=== PATIENT | male | born 1955 | race Caucasian/White ===

== ENCOUNTER → 2020-07-05 07:33 | Day surgery (SDC) | payer MEDICARE ==
[~2020-07-05] VITALS: Ht 167.6 cm; Wt 86.2 kg
[~2020-07-05 07:33] MED LIST: LISINOPRIL20 MG; TRAZODONE HCL100 MG PO; ZOCOR20 MG PO
[2020-07-05 08:09] LABS: BASOPHILS 1.1 % (0-2); EOSINOPHILS 3.2 % (0-7); HEMATOCRIT 44.7 % (42.0-54.0); HEMOGLOBIN 15.1 g/dL (13.5-17.5); IMMATURE GRANULOCYTES 0.2 % (0-5); LYMPHOCYTE ABS# 0.92 10x3/uL (1.32-3.57); LYMPHOCYTES 16.1 % (15-50); MCH 29.2 pg (26.0-34.0); MCHC 33.8 g/dL (31.0-37.0); MCV 86.3 fL (80.0-100.0); MEAN PLATELET VOLUME 8.7 fL (7.4-10.4); MONOCYTES 11.4 % (2-11); NEUTROPHIL ABS# 3.89 10x3/uL (1.78-5.38); PLATELET COUNT 251 10x3/uL (130-400); RBC 5.18 10x6/uL (4.20-6.10); RDW 13.2 % (11.5-14.5); WBC 5.7 10x3/uL (4.8-10.8)
[2020-07-05 08:18] LABS: ANION GAP 12.1 mmol/L (8-16); CALCIUM 9.2 mg/dL (8.5-10.1); CARBON DIOXIDE 27.3 mmol/L (21.0-32.0); CREATININE - SERUM 1.3 mg/dL (0.6-1.3); POTASSIUM - SERUM 4.4 mmol/L (3.5-5.1)
[2020-07-05 08:48] VITALS: BP 129/71; BMI 30.7
[2020-07-05 08:54] VITALS: BP 129/71; Ht 167.6 cm; Wt 86.2 kg
== END | disposition home or self-care (01) ==
LOC: D.OPS 07:33
PROVIDERS: Anesthesiology; ATTEND Orthopaedic Surgery
DX: S83.241A Other tear of medial meniscus, current injury, right knee, initial encounter (principal); Z53.9 Procedure and treatment not carried out, unspecified reason

== ENCOUNTER 2020-07-12 06:05 | Day surgery (SDC) | payer MEDICARE ==
[~2020-07-12] VITALS: Ht 167.6 cm; Wt 86.2 kg
--- NOTE | ~2020-07-12 | OP ---
PATIENT NAME: MARY BETH HAMLIN MEDICAL RECORD: [id number] :55 LOCATION:[facility] ADMISSION DATE: SURGEON: MANJIT HOOVER MD DATE OF OPERATION: 07/12/2020 PREOPERATIVE DIAGNOSES: 1. Right knee pain. 2. Medial meniscus tear. 3. Chondromalacia. POSTOPERATIVE DIAGNOSES: 1. Right knee pain. 2. Medial meniscus tear. 3. Chondromalacia. PROCEDURE PERFORMED: Right knee scope with partial medial meniscectomy, chondroplasty and limited synovectomy. INDICATIONS FOR THE PROCEDURE: Mr. Hamlin is a 65-year-old male with history of right knee pain and mechanical symptoms. MRI shows evidence of medial meniscus tear. He has elected to proceed with surgery for right knee arthroscopy. Risks, benefits and alternatives of surgery were discussed with the patient and consent was obtained. DESCRIPTION OF THE PROCEDURE: The patient was met in the holding area where his identity and confirmation of procedure was performed. The right lower extremity was marked. He was taken to the operating room where he was placed supine on the operating table and anesthesia was administered. Tourniquet was applied to the right leg. Right leg was positioned in the leg swenson. The right lower extremity was prepped and draped in a sterile fashion. The patient received preoperative antibiotics and timeout was performed before initiating the case. On initiation of the case, leg was exsanguinated and the tourniquet was raised. Total tourniquet time was 39 minutes. We began with placement of our superior medial portal, inserted the cannula and filled the knee with fluid. We then placed our anterolateral portal and inserted the camera, placed our anterior medial portal under direct visualization. Diagnostic knee arthroscopy was performed. There was extensive synovitis throughout the knee. Grade III chondromalacia at the undersurface of the patella, grade I of the trochlea. There was a medial plica present. Medial and lateral gutters were clear. Medial compartment showed a tear in the posterior horn and body of the medial meniscus. Grade II chondromalacia of the medial femoral condyle and grade I of the medial tibial plateau. The ACL was intact. Lateral compartment was okay. There was some grade I chondromalacia of the lateral tibial plateau. The remainder was in good condition. Using a biter and shaver, we performed a partial medial meniscectomy. Chondroplasty was also performed at the anterior edge of the tibial plateau and at the medial femoral condyle. A limited synovectomy was performed at the tissues of the infrapatellar fat pad and the medial plica. Chondroplasty was also performed at the undersurface of the patella. Before and after images were obtained. This completed our procedure. The instruments were removed and fluid was drained from the knee. The portal sites were injected with 0.25% Marcaine with epinephrine. These were then closed with nylon suture. A sterile dressing was placed. The patient was turned back over to anesthesia where he was awakened, extubated, and taken to the recovery room in stable condition. OPERATIVE REPORT [id number] MARY BETH HAMLIN POSTOPERATIVE PLAN: The patient is going to return home with his family today. He may be weightbearing as tolerated on the right lower extremity and use assistive device as needed. Start physical therapy in 2-3 days. We will see him back in clinic in 2 weeks. COMPLICATIONS: None. ESTIMATED BLOOD LOSS: 5 mL. ANESTHESIA: General. TRANSINT:[id number] Voice Confirmation ID: [id number] DOCUMENT ID: [id number] MANJIT HOOVER MD CC: [id number] DICTATION DATE: 07/12/20 1032 REHABILITATION AIDE/SCHEDULER: 07/12/20 1153 PRE [facility] [address] [place] [address]
[2020-07-12 07:18] VITALS: BP 121/61; Ht 167.6 cm; Wt 86.2 kg
--- NOTE | 2020-07-12 10:31 | NUR ---
PT REMAINS ASLEEP - NOT AROUSABLE WITH MODERATE STIMULATION
--- NOTE | 2020-07-12 10:32 | NUR ---
PT AWAKENING - OPA REMOVED
--- NOTE | 2020-07-12 16:20 | NUR ---
1200 IV DC'D. CATHETER TIP INTACT. NO BLEEDING AT SITE. BANDAID APPLIED. 1214 PT IS DRESSED AND READY FOR DISCHARGE HOME. PT VOICES UNDERSTANDING OF DISCHARGE INSTRUCTIONS.
== END 2020-07-12 12:14 | disposition home or self-care (01) ==
LOC: D.OPS 06:05
PROVIDERS: ATTEND Orthopaedic Surgery
DX: M25.561 Pain in right knee (principal); S83.241A Other tear of medial meniscus, current injury, right knee, initial encounter; X58.XXXA Exposure to other specified factors, initial encounter; M94.261 Chondromalacia, right knee; I10 Essential (primary) hypertension; E78.5 Hyperlipidemia, unspecified

== ENCOUNTER 2020-07-17 06:28 | Day surgery (SDC) | payer MEDICARE ==
[~2020-07-17] VITALS: Ht 167.6 cm; Wt 86.4 kg
[2020-07-17 07:07] LABS: ANION GAP 8.8 mmol/L (8-16); CALCIUM 9.1 mg/dL (8.5-10.1); CARBON DIOXIDE 29.3 mmol/L (21.0-32.0); CREATININE - SERUM 1.1 mg/dL (0.6-1.3); POTASSIUM - SERUM 4.1 mmol/L (3.5-5.1)
[2020-07-17 07:16] LABS: BASOPHILS 0.4 % (0-2); EOSINOPHILS 3.2 % (0-7); HEMATOCRIT 44.3 % (42.0-54.0); IMMATURE GRANULOCYTES 0.3 % (0-5); LYMPHOCYTE ABS# 0.74 10x3/uL (1.32-3.57); LYMPHOCYTES 10.4 % (15-50); MCH 29.5 pg (26.0-34.0); MCHC 33.9 g/dL (31.0-37.0); MEAN PLATELET VOLUME 9.2 fL (7.4-10.4); MONOCYTES 10.8 % (2-11); NEUTROPHIL ABS# 5.31 10x3/uL (1.78-5.38); NEUTROPHILS 74.9 % (40-80); PLATELET COUNT 293 10x3/uL (130-400); RBC 5.09 10x6/uL (4.20-6.10); RDW 13.1 % (11.5-14.5); WBC 7.1 10x3/uL (4.8-10.8)
[2020-07-17 07:48] VITALS: BP 122/60; Ht 167.6 cm; Wt 86.4 kg
--- NOTE | 2020-07-17 13:37 | NUR ---
[address] MARADIAGA. PROCEDURE FINDINGS DISCUSSED WITH PT & . Clarence SOLOMON R.N. 1135 UP TO BATHROOM. VOIDED URINE. STATES HAS PASSED FLATUS NONE AUDIBLE. IV DC'ED WITH CATH INTACT. DRESSING. Clarence SOLOMON R.N.
--- NOTE | 2020-07-17 13:39 | NUR ---
1145 DRESSED, AWAKE & ALERT. PROVIDED WITH D/C INFORMATION INCLUDING: SHEET LISTING NSAIDS TO AVOID, MED REC, RTC APPT., & [facility] POST ENDOSCOPY D/C INSTRUCTIONS. OR VOICED UNDERSTANDING. TO PRIVATE CAR PER WHEELCHAIR BY STAFF. HOME WITH MRS. FISCHER. Clarence SOLOMON R.N.
--- NOTE | 2020-07-19 14:37 | HP ---
PATIENT: MARY BETH FISCHER MEDICAL RECORD: [id number] ACCOUNT: [id number] LOCATION:[facility] : 55 ADMISSION DATE: 07/17/20 PCP: KARIS HASSAN MD HISTORY AND PHYSICAL EXAMINATION HISTORY OF PRESENT ILLNESS: The patient has several lesions in the rectum and the sigmoid colon. These have been hot biopsied. They also described a "skin tag" in the distal sigmoid colon. My plan is for flexible sigmoidoscopy with biopsies and ablation of anything that appears to be a skin tag or polyp. The risks, possible complications, and alternatives of the procedure were explained to the patient. He elects to proceed. SOCIAL HISTORY: Nonsmoker. PAST MEDICAL AND SURGICAL HISTORY: Hypertension, hypercholesterolemia. HOME MEDICATIONS: Lisinopril, Zocor, trazodone. ALLERGIES: NIACIN. REVIEW OF SYSTEMS: Negative for CVA, seizures. Negative for diabetes or thyroid problems. PHYSICAL EXAMINATION: GENERAL: The patient does not appear acutely ill. He does not appear chronically ill. VITAL SIGNS: Reviewed. EARS: External ears appear normal. EYES: Extraocular movements are intact. NECK: Trachea is midline. CHEST: No intercostal retractions. PULMONARY: Nonlabored. No stridor. IMPRESSION: Polypoid lesions in the large bowel. PLAN: Flexible sigmoidoscopy with polypectomies. TRANSINT:[id number] Voice Confirmation ID: [id number] DOCUMENT ID: [id number] MINH MARADIAGA MD at 1437 CC: PRATIK MCCARTY LAWRENCE, BRENT M MD and KARIS HASSAN MD [id number] DICTATION DATE: 07/17/20 1014 DRAPERY ESTIMATOR: 07/17/20 1038 [facility] 07/17/20 [place] [id number] [place] [id number]
--- NOTE | 2020-07-19 14:37 | OP ---
PATIENT NAME: MRAY BETH FICSHER MEDICAL RECORD: [id number] :55 LOCATION:D.OPS ADMISSION DATE: SURGEON: MINH MARADIAGA MD DATE OF OPERATION: 07/17/2020 PREOPERATIVE DIAGNOSES: 1. History of sigmoid and rectal polyps removed utilizing the hot biopsy forceps polypectomy technique. 2. Description of a skin tag in the sigmoid colon. POSTOPERATIVE DIAGNOSES: 1. Scar at the sites of the polypectomies within the sigmoid colon and rectum. 2. Five prominent anal papillas. PROCEDURE: 1. Total colonoscopy to cecum. 2. Hot biopsy forceps polypectomy 2. 3. Endoscopic ablation with the hot cautery forceps of 5 large anal papillas. SURGEON: Minh Maradiaga MD PROGRESS WORKER: None. BLOOD LOSS: Minimal. ANESTHESIA: IV sedation. COMPLICATIONS: None. The risks, possible complications, and alternatives of the procedure were explained to the patient. He elects to proceed. ENDOSCOPIC COURSE: The patient was conveyed to the endoscopy suite electively on 07/17/2020. IV sedation was induced by the anesthesia staff. The patient was placed in the [place] position. A digital rectal examination was performed. The prostate was symmetric, slightly enlarged and without nodules. A colonoscope was inserted through the anus. It was easily advanced to the cecum. The prep was adequate. Upon withdrawal, I dragged the folds. The pullback was greater than a 15-minute pullback. A combination of normal imaging and narrow band imaging were utilized. I traversed the sigmoid colon and rectum several times looking for residual polyps. The only 2 polyps that I could identify was a 4-mm sessile polyp as well as a 6-mm flat polyp and these were removed in their entirety utilizing the hot biopsy forceps polypectomy technique. Retroflex view was obtained in the rectum. The anal papillae were large and could present hygiene problem or even prolapse out through the anus. For this reason, I grasped each one and ablated it utilizing the hot biopsy forceps technique. I then unretroflexed the scope and removed it under direct vision. The patient was then conveyed back to his room. I am going to plan after I see him in the office to return his endoscopic needs back over to Dr. Taylor. TRANSINT:[id number] Voice Confirmation ID: [id number] DOCUMENT ID: [id number] OPERATIVE REPORT [id number] MARY BETH FISCHER MINH MARADIAGA MD at 1437 CC: PRATIK TAYLOR and KARIS HASSAN MD [id number] DICTATION DATE: 07/17/20 1113 ATHLETIC COORDINATOR: 07/17/20 1552 [facility] 07/17/20 [place] [id number] [place] [id number]
== END 2020-07-17 11:45 | disposition home or self-care (01) ==
LOC: D.OPS 06:28
PROVIDERS: Anesthesiology; ATTEND Surgery
DX: Z86.010 Personal history of colon polyps (principal); K62.0 Anal polyp; K62.1 Rectal polyp; K64.4 Residual hemorrhoidal skin tags; K62.89 Other specified diseases of anus and rectum; I10 Essential (primary) hypertension; E78.00 Pure hypercholesterolemia, unspecified